=== PATIENT | male | born 1955 | race Caucasian/White ===

== ENCOUNTER 2021-02-13 06:54 | Day surgery (SDC) | payer MEDICARE ==
[~2021-02-13] VITALS: Ht 172.7 cm; Wt 72.0 kg
[~2021-02-13 06:54] MED LIST: STATINS
--- NOTE | 2021-02-13 07:19 | NUR ---
History, Chart, Medications and Allergies reviewed before start of procedure.Patient states colon prep results clear. Patient States Post-Procedure ride home has been arranged.
--- NOTE | 2021-02-13 08:47 | NUR ---
02/13/21 0847 EMERITA DOS SANTOS History, Chart, Medications and Allergies reviewed before start of procedure. 3-LEAD EKG REVIEWED WITH PHYSICIAN PRIOR TO START OF PROCEDURE. O2 VIA N/C INTACT THROUGHOUT SEDATION/PROCEDURE. MONITOR INTACT WITH CONTINUOUS PULSE OXIMETRY AND INTERMITTENT BP. PATIENT DETERMINED TO BE ASA APPROPRIATE FOR PROPOFOL SEDATION PRIOR TO START OF PROCEDURE BY DR. PORRAS
--- NOTE | 2021-02-13 09:57 | NUR ---
Discharge instructions reviewed with patient. Patient verbalizes understanding. Copy given to patient to take home. AWAITING RIDE HOME WHOSE ON HIS WAY. TOLERATED JUICE WELL.
== END 2021-02-13 10:20 | disposition home or self-care (01) ==
LOC: ORSCMMR 06:54 → ORD 08:30 → ORSCMMR 08:30
PROVIDERS: Surgery
PROC: 0DBM8ZX Excision of Descending Colon, Via Natural or Artificial Opening Endoscopic, Diagnostic (ICD-10-PCS; principal; 2021-02-13 08:30)
DX: Z85.038 Personal history of other malignant neoplasm of large intestine (principal); Z86.010 Personal history of colon polyps; D12.4 Benign neoplasm of descending colon; K57.30 Diverticulosis of large intestine without perforation or abscess without bleeding; J44.9 Chronic obstructive pulmonary disease, unspecified; E78.5 Hyperlipidemia, unspecified; Z79.899 Other long term (current) drug therapy
CPT/HCPCS: 88305; J2704; J7120